=== PATIENT | male | born 1955 ===

== ENCOUNTER 2025-08-17 12:17 | Outpatient (AMB) | payer MEDICARE, SELFPAY ==
--- NOTE | 2025-08-17 12:32 | A.PHYSOV ---
Vital Signs 08/17/25 12:39 Height 5 ft 4 in Weight 185 lb BMI 31.8 Intake Visit Reasons: Bilateral shoulder injections Intake Note: Patient is a 70 year old male here for bilateral shoulder injections. Salt Miner Required: No Allergies atorvastatin Allergy (Unknown, Verified 08/17/25 12:33) Unknown ivp dye Allergy (Unknown, Uncoded 08/17/25 12:33) Unknown [facility] [place] Surgical History (Updated 08/15/25 @ 15:55 by Marlena Castellanos MA) History of cataract surgery (Unknown) Total knee replacement status (Unknown) Social History Alcohol intake: current Alcohol intake frequency: holidays/special occasions only Patient Tobacco Use Status: Former Tobacco user Use of substances other than those prescribed or required for medical reasons: No Physical Exam Vital Signs: BMI result Body Mass Index 31.8 Office Procedures AMB Shoulder Injection AMB Shoulder Injection Procedure Details: Bilateral Subacromial injection Procedure: The patient was educated about risks, complications and benefits including but not limited to increased serum glucose, infection, nerve damage, bleeding, tendon/ligament damage and pain. We agree with a subacromial injection is the next best step in the treatment plan. Verbal consent was obtained. Using aseptic technique, the skin was cleansed with Betadine. Ethyl chloride was used to desensitize the skin. Using a posterior approach left shoulder, 40 mg of Kenalog and 3 mL 2% lidocaine were injected using a 25-gauge inch and a half needle into the subacromial space. The patient tolerated the procedure well without immediate complication. Postinjection instructions were given. The procedure was repeated on the right. Shoulder Injection - : Bilateral All charges added?: Procedure code (CPT) selection complete Office Meds Kenalog 40 mg/mL suspension for injection Performing Provider: RAJWINDER Celestin Performing Location: [facility] Administered by: RAJWINDER Celestin on 08/17/25 14:18 Dose Route Admin Location Dispensed Lot Number Expiration Date [facility] Scudding [employer] 40 mg intra-articular 1 mL [id number] [employer] Total Dispensed Waste 1 mL 0 % lidocaine (PF) 20 mg/mL (2 %) injection solution Performing Provider: RAJWINDER Celestin [facility] Administered by: RAJWINDER Celestin on 08/17/25 14:18 Dose Route Admin Location Dispensed Lot Number Expiration Date [place] [employer] 60 mg intra-articular 50 mL [id number] Total Dispensed Waste 50 mL 0 % Assessment & Plan Assessment & Plan (1) Impingement syndrome, shoulder, left: Code(s): M75.42 - Impingement syndrome of left shoulder Category: Medical (2) Impingement syndrome of right shoulder: Code(s): M75.41 - Impingement syndrome of right shoulder Category: Medical Plan Mr. Burgos is a 70-year-old male seen in evaluation today for bilateral shoulder impingement. Today consented to bilateral subacromial injection. He was given post-injection instructions, recommend: Moist heat compresses for 15 minutes to 5 times daily. He should avoid repetitive overhead activities. Continue rotator cuff strengthening. Follow-up with our office as needed. Orders: Orders AMB Shoulder Injection Today M75.41 - Impingement syndrome of right shoulder, M75.42 - Impingement syndrome of left shoulder Coding Level of Care Code Procedure Only Diagnoses Impingement syndrome, shoulder, left M75.42 Impingement syndrome of right shoulder M75.41 CPT Codes AMB Shoulder Injection - Hip/Bursa Injection - : Bilateral ([id number])
[2025-08-17 12:39] VITALS: BMI 31.8
--- OUTSIDE RECORDS SUMMARY | 2025-08-17 12:46 | XMS_ITS | Encounter Summary ---
Author Organization [facility] Address [address] [place] [address] Care Team Providers Care Fisheries Enforcement Officer Name Role Phone Tammi Gongora MD Primary Care Provider [phone] Encounter Details Date Type Department Care Team (Late st Contact Info) Description 06/28/2025 Results Follow-Up Adult Medicine [facility] [address] [place] [address] Beth Ferrell PA [address] [place] [address] Social History Tobacco Use Types Packs/Day Years Used Date Smoking Tobacco: Former Cigarettes 1 Q uit: 09/27/2001 Smokeless Tobacco: Never Alcohol Use Standard Drinks/Week Comments Yes 0 (1 standard drink = 0.6 oz pur e alcohol) ON WEEKENDS ONLY Sex and Gender Information Value Date Recorded Sex Assigned at Male 08/19/2024 4:03 PM EST Legal Sex Male 2:15 PM EST Gender Identity Male 08/19/2024 4:03 PM EST Sexual Orientation Straight 08/19/2024 4: 03 PM EST documented as of this encounter Functional Status * Are you deaf or do you have serious difficulty hearing? Answer Date of Assessment Author No 08/19/2024 4:28 PM Rito Salas RN * Are you blind or do you have serious difficulty seeing, even when wearing glasses? Answer Date of Assessment Author No 08/19/2024 4:28 PM Rito Salas RN documented as of this encounter Mental Status * Because of a physical, mental, or emotional condition, do you have serious difficulty concentrating, remembering, or making decisions? (5 years old or older) Answer Entry Date Author No 08/19/2024 4:28 PM EST Rito Murillo RN documented in this encounter Plan of Treatment Upcoming Encounters Date Type Department Care Team (Late st Contact Info) Description 09/11/2025 2:00 PM EST Office Visit Adult Medicine [facility] [address] [place] [address] Tammi Gongora MD [address] [place] [address] 11/06/2025 11:00 AM EST Ancillary Procedure [facility] [address] [place] [address] documented as of this encounter Visit Diagnoses Not on filedocumented in this encounter Care Teams Fisheries Enforcement Officer Relationship Specialty Start Date End Date Tammi Gongora MD [address] [place] [address] PCP - General 01/17/02 documented as of this encounter
--- OUTSIDE RECORDS SUMMARY | 2025-08-17 12:46 | XMS_ITS | Clinical Summary ---
Author Organization [facility] Address [address] [place] [address] Phone Care Team Providers Care Corrugated Sheet Material Sheeter Name Role Phone Tammi Gongora MD Primary Care Provider [phone] Allergies Active Allergy Reactions Criticality Noted Date Comments Atorvastatin Calcium Weakness Medium 10/01/2005 Iodinated Contrast Media Anaphylaxis High 08/13/2014 Medications multivit with rzt-OK-tpormoip (One-A-Day Men's 50 Plus) 400-370 mcg tablet Take 1 tablet by mouth 1 (one) time each day. Active omega-3 acid ethyl esters (LOVAZA) 1 gram capsule Take by mouth. Active aspirin 81 mg EC tablet by Not Applicable route. Active ONETOUCH DELICA LANCETS MISC Inject 1 each under the skin. 024 Active acetaminophen (TYLENOL) 160 mg chewable tablet Chew 1 tablet (160 mg total) every 4 (four) hours if needed. 016 Active OneTouch Ultra Test test stripIndications: Controlled type 2 diabetes mellitus without complication, without long-term current use of insulin ([facility] V24, [facility] V28) Use to check blood sugar 1 (one) time each day. 100 each 1 025 Active metoprolol tartrate (LOPRESSOR) 50 mg tablet TAKE 1 TABLET BY MOUTH EVERY MORNING AND 1/2 TABLET EVERY EVENING 135 tablet 1 025 Active Jardiance 25 mg tablet TAKE 1 TABLET BY MOUTH 1 TIME EACH DAY. 90 tablet 1 025 Active amLODIPine (NORVASC) 10 mg tablet TAKE 1 TABLET BY MOUTH EVERY DAY 90 tablet 1 025 Active lisinopril (PRINIVIL,ZESTRIL ) 40 mg tablet TAKE 1/2 TABLET BY MOUTH DAILY 45 tablet 025 Active rosuvastatin (CRESTOR) 5 mg tabletIndications :Hyperlipidemia, unspecified hyperlipidemia type Take 1 tablet (5 mg total) by mouth 1 (one) time each day. 90 tablet 025 Active allopurinoL (ZYLOPRIM) 100 mg tablet Take 1 tablet (100 mg total) by mouth 1 (one) time each day. 30 each 3 025 2025 Active tadalafiL (CIALIS) 20 mg tablet Start with 1/2 tablet po 30-45 mins prior to sexual activity. May increase to 20mg.No more than once a day. 12 tablet 1 025 Active nitroglycerin (NITROSTAT) 0.[address] 1 tablet (0.4 mg total) under the tongue every 5 (five) minutes if needed. 023 2024 Discontinued tadalafiL (CIALIS) 20 mg tablet Start with 1/2 tablet po 30-45 mins prior to sexual activity. May increase to 20mg.No more than once a day. 12 tablet 3 025 2024 Discontinued(R eonavaer) colchicine (COLCRYS) 0.6 mg tablet Take 1 tablet (0.6 mg total) by mouth 2 (two) times a day. Day 1: 1.2 mg (2 tablets) at the first sign of flare, followed by 0.6 mg (1 tab) after 1 hour; maximum total dose: 1.8 mg/day on day 1 (Ref). Initiate as soon as possible, ideally within 12 to 24 hours of flare onset. Day 2: 0.6 mg once or twice daily until flare resolves Some experts continue for 24 to 48 hours after flare resolves; 60 each 2 025 2024 Active Problems Problem Noted Date Diagnosed Date Venous insufficiency 04/17/2024 Overview (05/31/2024): Last Assessment & Plan: Most likely the cause of dependent edema that the patient has been experiencing intermittently. He does not have much in the way of edema on exam today. I went through several options including conservative management with compression socks or stockings as tolerated when on feet for a long time, elevation of legs when seated or supine, avoidance of excess sodium. I also offered to do an ultrasound with reflux study to see if there are any procedural treatments. Finally I offered to start him on as needed Lasix. He would like to proceed with conservative management for now. I have low suspicion this is related to heart failure given central euvolemia and lack of true heart failure symptoms. Assessment & Plan (05/04/2025 8:05 AM EDT): No lower extremity edema on the appointment today. Patient reports this is generally been well-controlled. HLD (hyperlipidemia) 06/05/2022 Chest pain 06/05/2022 Dizziness 06/05/2022 Renal cyst 05/28/2021 Overview (11/16/2023): Right CT ER 05/17. Ultrasound pending Pulmonary nodule 05/28/2021 Overview (11/16/2023): CT ER 05/17 Right upper lobe. Repeat 12 mo Steatohepatitis 01/13/2021 Benign prostatic hyperplasia without lower urinary tract symptoms 01/13/2021 Overview (11/16/2023): Incidental finding on CT abdomen 12/12/2020 Obesity (BMI 30-39.9) 06/27/2019 History of total left knee replacement (TKR) Lumbosacral spondylosis without myelopathy 01/05 Knee pain, bilateral 02/06/2015 Overview (11/16/2023): Left TKR 01/10 Old LA (myocardial infarction) 01/13/2013 Overview (11/16/2023): OLD LA 2001/ Cardio note 2012 Controlled diabetes mellitus type II without complication ([facility] V24, [facility] V28) 08/21/2010 Overview (11/16/2023): Positive GTT 2009 Diverticulitis 08/13/2010 Overview (11/16/2023): Hosp 08/11/10 Nonspecific elevation of lev els of transaminase or lactic acid dehydrogenase (LDH) 11/12/2006 Overview (11/16/2023): and triglycerides 11/03--increased etoh due to stress 03/04--increased again then normal, Iron/hep screen, u/s normal Coronary atherosclerosis of [place] coronary vess el 10/01/2005 Overview (11/16/2023): LA 08/28---PTCA RCA MIBI negative--01/29 Mibi 11/04--EF 57%, old infarct, no ischemia 03/05--atypical cp--ETT neg (13.1 mets) Last Assessment & Plan: Most recent heart catheterization described above. This took place in April 2022. He is experiencing no anginal symptoms at his heaviest level of activity and exercise. He reportedly exercises on a regular basis. He realizes that he has gained weight that he needs to lose. We reviewed his risk factor profile. We discussed healthful diet limiting carbohydrates and optimizing his triglycerides even further. Lipids described below. Continue lifestyle modifications efforts at weight loss healthful diet and certainly need to report any symptoms of concern. He will now discontinue Plavix entirely he had been using up what was remaining. He will continue low- dose aspirin lifelong. He also will remain on beta-blockade for heart rate control. Hypertension 10/01/2005 Overview (11/16/2023): Last Assessment & Plan: The patient follows his blood pressure very closely at home. We reviewed the proper collection technique. I have again reminded him that a goal blood pressure for him is 130/80. He is on metoprolol, maximum dose amlodipine, and 20 mg of lisinopril, we discussed that if his blood pressure is not ideally controlled at home we could increase his lisinopril. This would require close monitoring of electrolytes and renal function. He is a type II diabetic as well. For now he would prefer lifestyle modifications and make efforts at weight loss though he believes his blood pressure is well controlled overall at home despite his elevated readings here in the office. He does believe that he has office hypertension. Did discuss trying to follow quite a prudent low-sodium diet. He assures me he will call if he believes his blood pressures are not in good control. Hypercholesterolemia 10/01/2005 Overview (11/16/2023): Intol Lipitor (achy), Pravastatin Last Assessment & Plan: Unfortunately with bibiana lewis the cost becomes prohibitive with Repatha. He is now able to pay the co-pay on the Repatha and is asked me to reorder this. He has no side effects and believes that he tolerates this exceptionally well. It appears as well to do an extraordinary job reducing his LDL into the 20s where now off of it it is in the 150s. Again continue with limiting carbohydrates processed foods sugars starches that can elevate LDL and triglycerides. Continue with exercise. Lipids are up-to-date collected as a baseline prior to restarting Repatha and I reviewed with the patient. Coronary atherosclerosis of [place] coronary vess el 10/01/2005 Overview (05/31/2024): - Non-Q wave inferior myocardial infarction in 2001 treated with RCA stenting - Continued to have symptoms of shortness of breath for which a stress test was done in March 2022 and was positive with ischemia in the basal to mid inferior wall - Initially was managed medically with antianginals - Ultimately underwent cardiac cath in April 2022 which showed moderate to severe proximal LAD stenosis with a positive IFR that was grossly ischemic for which he received shockwave atherectomy and drug-eluting stent placement, he had moderate stenosis of the circumflex of unclear significance and IFR of this vessel was unremarkable, patent RCA stent with no obstructive disease in the RCA territory - Initially, shortness of breath symptoms went away after cath but then resumed-ultimately he was switched from ticagrelor to Plavix and shortness of breath improved greatly - Most recent echocardiogram August 2023 showing mild LV dilatation, normal wall thickness and systolic function, hypokinesis of the basal to mid inferoseptal and inferior [place] but otherwise preserved systolic function of 55 to 60%, normal RV size and systolic function, no hemodynamically significant valve disease Last Assessment & Plan: No recurrent anginal symptoms, continue current metoprolol, Repatha, baby aspirin, fish oil supplementation. Assessment & Plan (05/04/2025 8:04 AM EDT): No new anginal symptoms at the appointment today. He continues to be active throughout the day exercising frequently. Please continue on the metoprolol, rosuvastatin, baby aspirin. I am going to update an echocardiogram in 6 months. Instructed to call 911 or go to the emergency room should the patient begin to experience chest pain or pressure lasting greater than 10 minutes does not resolve with rest. Hypercholesterolemia 10/01/2005 Overview (05/31/2024): Intol Lipitor (achy), Pravastatin Last Assessment & Plan: Intolerant to statins but has had good control of lipids with Repatha. Continue fish oil supplementation for triglyceride elevation. Assessment & Plan (05/04/2025 8:06 AM EDT): The patient has history of being intolerant to statins, and was doing well on Repatha. However, his insurance decided not to cover the Repatha and he had to switch back to rosuvastatin. He is updating his lipid panel within the next week, would like his LDL to be at 70 or below. This is important considering his history of coronary artery disease. He reports he may be getting a new insurance in the future in which case we could try again for the Repatha. Hypertension 10/01/2005 Overview (05/31/2024): Last Assessment & Plan: Controlled at home on current regimen even though he is suboptimally controlled here. Suspect whitecoat hypertension. In reviewing flowsheets, he has had better blood pressure control on prior visits as well. Continue current amlodipine 10 mg daily, lisinopril 40 mg daily, metoprolol 50 mg in the morning and 25 mg in the evening. Assessment & Plan (05/04/2025 8:05 AM EDT): Controlled on current regimen. Slightly elevated at the appointment today, will have him take blood pressure measurements at home. Please continue on current regimen which includes amlodipine 10 mg p.o. daily, lisinopril 40 mg p.o. daily, and metoprolol 50 mg p.o. in the morning and 25 mg p.o. in the evening. Encounters Date Type Department Care Team Description 06/28/2025 11:45 AM EDT Office Visit Adult Medicine [facility] [address] [place] [address] Beth Ferrell PA Acute gout of left hand, unspecified cause (Primary Dx) 06/28/2025 Results Follow-Up Adult Medicine [facility] [address] [place] [address] Beth Ferrell PA from Last 3 Months Immunizations Immunization Administration Dates Next Due Influenza Quadravalent, 0.5m l (Fluzone High-dose) 65yo and older 07/31/2024 Influenza Quadravalent, MDCK , 0.5ml, preservative free (Flucelvax) 6mo and older 07/15/2021,11/02/2018 Influenza trivalent, 0.5mL ( Fluzone High-dose) 65yo and older 06/24/2022 Influenza trivalent, 0.5mL, preservative free (Fluarix; FluLaval; Fluzone) ages 6mo and older (Afluria) 3 years and older 08/23/2023 Influenza trivalent, with pr eservative (Fluzone; Afluria) 6mo and older 07/14/2020,10/20/2016,08/14/2015,07/04,07/05/2013,07/02/2011,10/09/2009 ,07/05/2008,06/30/2007,08/24/2005 Pneumococcal conjugate 20 va lent (Prevnar 20, PCV 20) 2mo and older 04/28/2023 Pneumococcal polysaccharide 23 valent (Pneumovax 23) 2yo and older 08/20/2010 Tdap Tetanus diptheria acell ular pertussis (Boostrix; Adacel) 7yo and older 11/15/2020,10/02/2010 Zoster recombinant (Shingrix ) 19yo and older 03/11/2023,11/05/2022 Surgical History Surgery Date Site/Laterality Comments COLONOSCOPY 08/01/2007 PROCEDURE: HISTORICAL COLONOSCOPY; COMMENT: negative colonoscopy APPENDECTOMY 1975 PROCEDURE: HISTORICAL APPENDECTOMY; COMMENT: age 21 COLONOSCOPY 08/13/2014 PROCEDURE: CO COLONOSCOPY FLX DX W/COLLJ SPEC WHEN PFRMD; COMMENT: no polyps or inflammation KNEE SURGERY 03/11 Left PROCEDURE: HISTORICAL KNEE SURGERY; COMMENT: arthroscopy, meniscus KNEE SURGERY 11/12 PROCEDURE: HISTORICAL KNEE SURGERY; COMMENT: left arthroscopy TOTAL KNEE ARTHROPLASTY 01/10 Left PROCEDURE: HISTORICAL TOTAL KNEE REPLACE CATARACT EXTRACTION PROCEDURE: HISTORICAL CATARACT REMOVAL; COMMENT: 09/2018 Medical History Medical History Date Comments Mixed hyperlipidemia DX:Mixed hy perlipidemia Old myocardial infarction 2001 DX:Old myocardial infarction 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 History of total left knee r eplacement (TKR) 10/12/2018 DX:History of total left kne e replacement (TKR) Family History Medical History Relation Name Comments Coronary artery disease Brother 1 Diabetes Brother 1 Diabetes Brother 2 Other: pacemaker Brother 3 Diabetes Brother 4 Coronary artery disease Father LA i n his 40s Dementia Mother Diabetes Mother Crohn's disease Sister Diabetes Sister Relation Name Status Comments Brother 1 Alive Brother 2 Alive Brother 3 Alive Brother 4 Alive Father Mother Alive Sister Alive Son 1 Alive Son 2 Alive Social History Tobacco Use Types Packs/Day Years Used Date Smoking Tobacco: Former Cigarettes 1 Q uit: 09/27/2001 Smokeless Tobacco: Never Tobacco Cessation:Counseling Given: Not Answered Alcohol Use Standard Drinks/Week Comments Yes 0 (1 standard drink = 0.6 oz pur e alcohol) ON WEEKENDS ONLY Sex and Gender Information Value Date Recorded Sex Assigned at Male 08/19/2024 4:03 PM EST Legal Sex Male 2:15 PM EST Gender Identity Male 08/19/2024 4:03 PM EST Sexual Orientation Straight 08/19/2024 4: 03 PM EST Obstetrics History Last Filed Vital Signs Vital Sign Reading Time Taken Comments Blood Pressure 120/80 06/28/2025 11:51 AM EDT Pulse 69 06/28/2025 11:51 AM EDT Temperature 36.3 C (97.3 F) 05/10/2025 8:14 AM EDT Respiratory Rate 18 06/28/2025 11:51 AM EDT Oxygen Saturation 97% 05/04/2025 7:40 AM EDT Inhaled Oxygen Concentration - - Weight 86.7 kg (191 lb 3.2 oz) 06/28/2025 11:51 AM EDT Height 160 cm (5' 3 ) 06/28/2025 11:51 AM EDT Body Mass Index 33.87 06/28/2025 11:51 AM EDT Plan of Treatment Upcoming Encounters Date Type Department Care Team (Late st Contact Info) Description 09/11/2025 2:00 PM EST Office Visit Adult Medicine - [facility] [address] [place] [address] Tammi Gongora MD [address] [place] [address] 11/06/2025 11:00 AM EST Ancillary Procedure [facility] [address] [facility] [address] [place] [phone] Health Maintenance Due Date Last Done Comments RSV Immunization Adult Patients (1 - Risk 50-74 years 1-dose series) 2007 Diabetes: Annual Retina Eye Exam 04/07/2022 04/07/2021 Medicare Annual Wellness Visit 09/05/2022 Social Influencers of Health Screening 09/05/2022 Colorectal Cancer Screening: Colonoscopy 08/13/2024 08/13/2014 Depression Screening 09/27/2024 09/30/2023 Falls Risk Assessment 09/30/2024 09/30/2023 COVID-19 Vaccine ( season) 2025 2022, 09/08/2021, 12/20/2020, Additional history exists Diabetes: Annual Foot Exam 10/27/2025 10/27/2024, Diabetes: Blood Sugar Control Test (HGBA1C) 11/09/2025 05/09/2025, 10/26/2024, 01/27/2024 Diabetes: Annual Urine Albumin-Creatinine Ratio (uACR) 05/09/2026 05/09/2025, 09/30/2023 Diabetes: Annual GFR (Glomerular Filtration Rate) 05/09/2026 05/09/2025, 10/26/2024, 01/27/2024 Hypertension/CHF/CAD Annual BMP Blood Test 05/09/2026 05/09/2025, 10/26/2024, 01/27/2024 Cholesterol Screening (Lipid Panel) 05/09/2030 05/09/2025, 10/26/2024, 05/17/2023 DTaP,Tdap,and Td Vaccines (4 - Td or Tdap) 11/15/2030 11/15/2020, 11/19/2013, 10/02/2010 Abdominal Aortic Aneurysm (AAA) Screen Completed 02/28/2014 Hepatitis C Screening Completed 02/12/2016, 016 Pneumococcal Vaccine: 50+ Years Completed 04/28/2023, 08/20/2010 Zoster Vaccines Completed 06/23/2023, 02/25, 11/05/2022 Influenza Vaccine Completed 07/10/2025, , 08/23/2023, Additional history exists HIB Vaccines Aged Out No longer eligi ble based on patient's age to complete this topic HPV Vaccines Aged Out No longer eligi ble based on patient's age to complete this topic Hepatitis A Vaccines Aged Out No long er eligible based on patient's age to complete this topic Hepatitis B Vaccines Aged Out No long er eligible based on patient's age to complete this topic IPV Vaccines Aged Out No longer eligi ble based on patient's age to complete this topic MMR Vaccines Aged Out No longer eligi ble based on patient's age to complete this topic Meningococcal ACWY Vaccine Aged Out N o longer eligible based on patient's age to complete this topic Meningococcal B Vaccine Aged Out No l onger eligible based on patient's age to complete this topic RSV Immunization Patients Under 20 months Aged Out No longer eligible based on patient's age to complete this topic Varicella Vaccines Aged Out No longer eligible based on patient's age to complete this topic Procedures Procedure Name Priority Date/Time Associated Diagnosis Comments PROSTATE SPECIFIC ANTIGEN DIAGNOSTIC Routine 07/10/2025 9:31 AM EDT Testicular hypofunction Benign enlargement of prostate TESTOSTERONE FREE, BIOAVAILABLE AND TOTAL Routine 07/10/2025 9:31 AM EDT Testicular hypofunction Benign enlargement of prostate URIC ACID Routine 06/28/2025 12:24 PM EDT Acute gout of left hand, unspecified cause MICROALBUMIN CREATININE URINE RATIO Routine 05/09/2025 8:52 AM EDT Controlled type 2 diabetes mellitus without complication, without long-term current use of insulin (CMS/HCC V24, CMS/HCC V28) COMPREHENSIVE METABOLIC PANEL Routine 05/09/2025 8:46 AM EDT Controlled type 2 diabetes mellitus without complication, without long-term current use of insulin (CMS/HCC V24, CMS/HCC V28) HEMOGLOBIN A1C Routine 05/09/2025 8:46 AM EDT Controlled type 2 diabetes mellitus without complication, without long-term current use of insulin (CMS/HCC V24, CMS/HCC V28) LIPID PANEL WITH REFLEX TO DIRECT LDL Routine 05/09/2025 8:46 AM EDT Controlled type 2 diabetes mellitus without complication, without long-term current use of insulin (CMS/HCC V24, CMS/HCC V28) HM DEPRESSION SCREENING Routine 09/30/2023 FALLS RISK ASSESSMENT Routine 09/30/2023 HEPATITIS C SCREENING Routine 02/12/2016 HM COLONOSCOPY Routine 08/13/2014 ABDOMINAL AORTIC ANEURYSM SCRREN Routine 02/28/2014 from Last 3 Months or Most Recently Relevant to Health Maintenance Results * Testosterone free, bioavailable and total (07/10/2025 9:31 AM EDT) Testosterone 235 229 - 902 ng/dL LAB CHEMISTRY METHOD 07/10/2025 12:57 PM EDT [facility] Testosterone, Free 5.9 4.6 - 22.4 ng/dL LAB CHEMISTRY METHOD 07/10/2025 12:57 PM EDT [facility] Testosterone, Bioavailable 123 110 - 575 ng/dL LAB CHEMISTRY METHOD 07/10/2025 12:57 PM EDT [facility] Sex Hormone Binding 23.2 See Comment nmol/L LAB CHEMISTRY METHOD 07/10/2025 12:57 PM EDT [facility] Comment: FEMALES: pre-menopausal 10.8 - >180 post-menopausal 23.2 - 159.1 MALES: 21-49 years 14.6 - 94.6 50-89 years 21.6 - 113.1 CHILDREN: No established reference range Over the counter supplements containing high doses of biotin may interfere with this assay. If interference is suspected, patients should be retested after refraining from biotin supplements for 72 hours. Albumin 3.8 3.2 - 5.0 g/dL LAB CHEMISTRY METHOD 07/10/2025 12:57 PM EDT [facility] Blood Venous blood specimen / Unknown Venipuncture / Unknown 07/10/2025 9:31 AM EDT 07/10/2025 11:11 AM EDT us Jeremy Cummins MD LAB BLOOD ORDERABLES Final Resul t [facility] [address] [place] [address], * Prostate specific antigen diagnostic (07/10/2025 9:31 AM EDT) PSA 2.89 0.00 - 4.00 ng/mL LAB CHEMISTRY METHOD 07/10/2025 1:59 PM EDT [facility] Blood Venous blood specimen / Unknown Venipuncture / Unknown 07/10/2025 9:31 AM EDT 07/10/2025 11:11 AM EDT Narrative [facility] - 07/10/2025 1:59 PM EDT The Siemens Advia Centaur Chemiluminescent Immunoassay is used. Results obtained with different assay methods or kits cannot be used interchangeably. Results cannot be interpreted as absolute evidence of the presence or absence of malignant disease. Jeremy Cummins MD LAB BLOOD ORDERABLES Final Resul t Performing Organization Address City/[facility]/ZIP Co de Phone Number [facility] [address] [place] [address], * Uric acid (06/28/2025 12:24 PM EDT) Uric Acid 4.2 3.7 - 9.2 mg/dL LAB CHEMISTRY METHOD 06/28/2025 2:16 PM EDT [facility] Blood Venous blood specimen / Unknown Venipuncture / Unknown 06/28/2025 12:24 PM EDT 06/28/2025 12:24 PM EDT Beth PURDY LAB BLOOD ORDERABLES Final Result [facility] [address] [place] [address], * (ABNORMAL) Microalbumin creatinine urine ratio (05/09/2025 8:52 AM EDT) Creatinine, Urine 122.0 mg/dL LAB CHEMISTRY METHOD 05/09/2025 1:08 PM EDT [facility] Microalb, Ur 43.0(H) 0.0 - 29.0 mg/L LAB CHEMISTRY METHOD 05/09/2025 1:08 PM EDT [facility] Microalb/Crea t Ratio 35(H) <30 mg/g creat LAB CHEMISTRY METHOD 05/09/2025 1:08 PM [facility] Urine Urine specimen obtained by clean catch procedure / Unknown Non-blood Collection / Unknown 05/09/2025 8:52 AM EDT 05/09/2025 8:52 AM EDT us C Tee Gongora MD LAB URINE ORDERABLES Final Res ult [facility] [address] [place] [address], [place] [phone] * (ABNORMAL) Lipid panel with reflex to direct LDL (05/09/2025 8:46 AM EDT) Cholesterol 203(H) 0 - 200 mg/dL LAB CHEMISTRY METHOD 05/09/2025 12:34 PM [facility] Triglycerides 93 0 - 150 mg/dL LAB CHEMISTRY METHOD 05/09/2025 12:34 PM [facility] HDL 69 >=40 mg/dL LAB CHEMISTRY METHOD 05/09/2025 12:34 PM [facility] LDL Calculated 115(H) 0 - 100 mg/dL LAB CHEMISTRY METHOD 05/09/2025 12:34 PM [facility] Comment:Estimated LDL Calcul ated using equation: Total cholesterol - HDL cholesterol - (Triglycerides/5) VLDL Cholesterol Shady 18.6 mg/dL LAB CHEMISTRY METHOD 05/09/2025 12:34 PM [facility] Non HDL Chol. (LDL+VLDL) 134 <145 mg/dL LAB CHEMISTRY METHOD 05/09/2025 12:34 PM [facility] Chol/HDL Ratio 2.9 0.0 - 4.4 LAB CHEMISTRY METHOD 05/09/2025 12:34 PM EDT [facility] Blood Venous blood specimen / Unknown Venipuncture / Unknown 05/09/2025 8:46 AM EDT 05/09/2025 8:46 AM EDT us Tammi Gongora MD LAB BLOOD ORDERABLES Final Res ult Performing Organization Address [facility] de Phone Number [facility] [address] [place] [address], [place] [phone] * (ABNORMAL) Hemoglobin A1c (05/09/2025 8:46 AM EDT) Hemoglobin A1C 6.8(H) <6.5 % LAB CHEMISTRY METHOD 05/09/2025 5:05 PM EDT [facility] Mean Bld Glu Estim. 148 mg/dL LAB CHEMISTRY METHOD 05/09/2025 5:05 PM EDT [facility] Blood Venous blood specimen / Unknown Venipuncture / Unknown 05/09/2025 8:46 AM EDT 05/09/2025 8:46 AM EDT us Tammi Gongora MD LAB BLOOD ORDERABLES Final Res ult Performing Organization Address [facility] de Phone Number [facility] [address] [place] [address], * (ABNORMAL) Comprehensive metabolic panel (05/09/2025 8:46 AM EDT) Sodium 137 133 - 145 mmol/L LAB CHEMISTRY METHOD 05/09/2025 12:34 PM EDT [facility] Potassium 4.2 3.5 - 5.5 mmol/L LAB CHEMISTRY METHOD 05/09/2025 12:34 PM EDT [facility] Chloride 103 96 - 110 mmol/L LAB CHEMISTRY METHOD 05/09/2025 12:34 PM EDT [facility] CO2 28 21 - 32 mmol/L LAB CHEMISTRY METHOD 05/09/2025 12:34 PM [facility] Anion Gap 6 3 - 11 LAB CHEMISTRY METHOD 05/09/2025 12:34 PM [facility] Glucose 140(H) 70 - 100 mg/dL LAB CHEMISTRY METHOD 05/09/2025 12:34 PM [facility] BUN 17 5 - 25 mg/dL LAB CHEMISTRY METHOD 05/09/2025 12:34 PM [facility] Creatinine 0.72 0.70 - 1.30 mg/dL LAB CHEMISTRY METHOD 05/09/2025 12:34 PM [facility] eGFR 100 >=60 mL/min/1. 73m2 LAB CHEMISTRY METHOD 05/09/2025 12:34 PM [facility] Comment:Calculation based on the Chronic Kidney Disease Epidemiology Collaboration (CKD-EPI) equation refit without adjustment for race. BUN/Creatinine Ratio 23.6 LAB CHEMISTRY METHOD 05/09/2025 12:34 PM [facility] Calcium 9.1 8.5 - 10.5 mg/dL LAB CHEMISTRY METHOD 05/09/2025 12:34 PM [facility] AST (SGOT) 19 10 - 42 unit/L LAB CHEMISTRY METHOD 05/09/2025 12:34 PM [facility] ALT (SGPT) 39 10 - 60 unit/L LAB CHEMISTRY METHOD 05/09/2025 12:34 PM [facility] Alkaline Phosphatase 59 42 - 121 unit/L LAB CHEMISTRY METHOD 05/09/2025 12:34 PM [facility] Total Protein 7.0 6.0 - 8.0 g/dL LAB CHEMISTRY METHOD 05/09/2025 12:34 PM [facility] Albumin 3.7 3.2 - 5.0 g/dL LAB CHEMISTRY METHOD 05/09/2025 12:34 PM [facility] Total Bilirubin 0.8 0.0 - 1.4 mg/dL LAB CHEMISTRY METHOD 05/09/2025 12:34 PM EDT [facility] Blood Venous blood specimen / Unknown Venipuncture / Unknown 05/09/2025 8:46 AM EDT 05/09/2025 8:46 AM EDT C Tee Gongora MD LAB BLOOD ORDERABLES Final Res ult [facility] [address] [place] [address], * Falls Risk Assessment (09/30/2023) Pathologist [facility] Falls Risk Assessment Negative Historical Provider HEALTH MAINTENANCE Final Result * Depression Screening (09/30/2023) Pathologist [facility] Depression Screening 0 [facility] Provider HEALTH MAINTENANCE Final Result * Hepatitis C Screening (02/12/2016) Pathologist [facility] Hepatitis C Screening neg [facility] Provider HEALTH MAINTENANCE Final Result * Colonoscopy (08/13/2014) Pathologist [facility] Colonoscopy Normal Anatomical Region Laterality Modality Other Historical Provider HEALTH MAINTENANCE Final Result * Abdominal Aortic Aneurysm Screen (02/28/2014) Pathologist [facility] Abdominal Aortic Aneurysm (AAA) Screening neg Anatomical Region Laterality Modality Other Historical Provider HEALTH MAINTENANCE Final Result from Last 3 Months or Most Recently Relevant to Health Maintenance Insurance [employer] MED[employer]ARE [employer]AGE Care 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
== END 2025-08-17 13:02 | disposition home or self-care (01) ==
LOC: HO.HPHYS 12:18
PROVIDERS: PCP Pediatrics; Visit Provider Physician Assistant
DX: M75.42 Impingement syndrome of left shoulder (principal); M75.41 Impingement syndrome of right shoulder
CPT/HCPCS: 20610

== ENCOUNTER → 2025-08-17 12:17 | Outpatient (BNVA) | payer MEDICARE, SELFPAY | PROVIDERS: PCP Pediatrics; Visit Provider Physician Assistant | DX: M75.42 Impingement syndrome of left shoulder (principal); M75.41 Impingement syndrome of right shoulder | CPT/HCPCS: 20610; J2003; J3301 ==